=== PATIENT | female | born 1990 | race Caucasian/White ===

== ENCOUNTER 2016-09-23 22:07 | Inpatient (IN) | payer OTHER ==
[~2016-09-23] VITALS: Ht 175.3 cm; Wt 90.7 kg
--- NOTE | ~2016-09-23 | PN ---
Unit #: [id number] #: [id number] Patient: KADI COX [id number] [facility] [address] [place] [address] [id number] I MR#: [id number] NAME: KADI COX ROOM: 71 Age: 26 Sex: F Admission Date: 09/24/2016 : 1990 Attending Physician: Shin Lagos M.D. Admitting Physician: Shin Lagos M.D. Primary Care Physician: Primary Care Physician Monae SCHAEFER PROGRESS NOTES DATE 09/25/2016 DISCUSSION Ms. Quiñones is a 26-year-old female, seen on 09/25/2016. The patient interviewed, chart reviewed, and obtained information from the nursing staff. The patient was compliant and cooperative, reports making progress. Vital signs, stable, 98.4, 73, 108/71. The patient still isolative, guarded, flat affect. REVIEW OF SYSTEMS Complete review of systems unremarkable. MENTAL STATUS EXAMINATION General appearance: Patient dressed casually. Attention span and concentration, fair. Oriented in time, place, and person. Mood and affect, sad and dysphoric. Speech, monotone. Thought process, concrete. The patient denied any thoughts of harming self or others or any psychotic symptoms. Recent and remote memory, poor but still isolative. Insight and judgment, fair to slightly impaired. DIAGNOSES 1. Mood disorder, NOS. 2. Opiate use disorder, moderate. 3. Cocaine use disorder, moderate. ASSESSMENT/PLAN Advised to continue with the current medication and therapeutic protocol, and if needed consider further adjustment of medication. Dictated by... Landy Tijerina/lulu TD: 09/27/2016 06:20 JOB #: [id number] Unit #: [id number] #: [id number] Patient: KADI COX ASHTYNJOSE PROGRESS NOTES Page 1 of 1 X Shin Lagos MD PROGRESS NOTE
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
--- NOTE | ~2016-09-23 | DS ---
Unit #: [id number] #: [id number] Patient: KADI COX [id number] [facility] [address] [place] [address] [id number] I MR#: [id number] NAME: KADI COX ROOM: P171 Age: 26 Sex: F Admission Date: 09/24/2016 : 1990 Discharge Date: 09/26/2016 Attending Physician: Shin Lagos M.D. Primary Care Physician: Primary Care Physician No DISCHARGE SUMMARY REASON FOR ADMISSION Depression. DIAGNOSTIC STUDIES LABORATORY RESULTS: Unremarkable. HOSPITAL COURSE The patient was admitted to inpatient unit on 09/24/2016 and discharged on 09/26/2016. The patient was treated on the inpatient unit with group therapy, individual therapy, medication management. The patient was responsive to treatment. Subsequently, the patient was discharged with a plan to follow up in outpatient program. DISCHARGE MEDICATIONS Celexa 20 mg daily for mood symptoms, Vistaril 25 mg t.i.d. for anxiety, and Desyrel 100 mg at bedtime for sleep. DISCHARGE DIAGNOSES Psychiatric: Major depressive disorder, recurrent, severe, F33.2; opioid use disorder, moderate, F11.20; cocaine use disorder, moderate, F14.20. Secondary diagnosis: Deferred. Medical diagnosis: Hepatitis C. Stressors: Psychosocial stressor. DISCHARGE INSTRUCTIONS The patient to follow up in outpatient clinic as per clinical social work therapist. CONDITION ON DISCHARGE The patient was pleasant and cooperative. Denied any psychotic symptom or any suicidal ideation. PROGNOSIS Guarded. DIET AND ACTIVITY As tolerated. Dictated by... Shin Lagos M.D. Unit #: [id number] #: [id number] Patient: KADI COX SZC/modl TD: 09/26/2016 17:46 JOB #: [id number] DISCHARGE SUMMARY Page 1 of 1 X Shin Lagos MD X DISCHARGE SUMMARY
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
[~2016-09-23 22:07] MED LIST: CLINDAMYCIN HC300 MG PO; FLAGYL PO; FLEXERIL10 MG PO; IBUPROFEN800 MG; IBUPROFEN800 MG PO; NAPROSYN500 MG PO; NO MEDICATIONS; PHENERGAN PR; VICODIN 5/1 TAB 5/50 PO; YASMIN 28 TABLE1 TAB PO; ZANAFLEX4 M1; ZOLOFT PO
[2016-09-24 11:34] LABS: URINE APPEARANCE CLOUDY; URINE BILIRUBIN NEG (NEG); URINE BLOOD NEG (NEG); URINE COLOR YELLOW; URINE GLUCOSE NEG (NEG); URINE KETONE NEG (NEG); URINE LEUKOCYTE ESTERASE NEG (NEG); URINE NITRATE NEG (NEG); URINE PROTEIN NEG (NEG); URINE SPECIFIC GRAVITY 1.021 (1.003-1.035)
[2016-09-24 12:03] LABS: AMPHETAMINE NEG (NEG); BARBITURATES NEG (NEG); BENZODIAZEPINES NEG (NEG); COCAINE NEG (NEG); MARIJUANA NEG (NEG); OPIATES NEG (NEG); TRICYCLIC ANTIDEPRESSANTS NEG (NEG); U METHADONE NEG (NEG)
[2016-09-26 12:31] LABS: BASOPHIL# 0.1 X10e3 (0-0.3); BASOPHIL% 0.7 % (0-2.5); EOSINOPHIL# 0.1 X10e3 (0-0.7); HEMATOCRIT 42.9 % (35.0-45.0); HEMOGLOBIN 14.7 gm/dL (12.0-16.0); LYMPHOCYTE# 1.9 X10e3 (1.0-3.5); LYMPHOCYTE% 18.9 % (17.0-45.0); MEAN CORPUSCULAR HEMOGLOBIN 30.1 PG (28-34); MEAN CORPUSCULAR HGB CONC 34.2 g/dL (30-36); MEAN PLATELET VOLUME 8.3 FL (6.5-11.5); MONOCYTE% 9.6 % (3.0-12.0); NEUTROPHIL# 7.1 X10e3 (1.5-7.1); NEUTROPHIL% 69.8 % (40-75); PLATELET COUNT 286 X10e3 (140-420); RED BLOOD COUNT 4.87 X10e (3.90-5.30); RED CELL DISTRIBUTION WIDTH 13.6 % (11.0-15.5); WHITE BLOOD COUNT 10.1 X10e3 (4.0-10.5)
[2016-09-26 12:34] LABS: DIFF IND NO
[2016-09-26 13:11] LABS: ALBUMIN SERUM 3.9 g/dL (3.5-5.0); BILIRUBIN,TOTAL 0.2 mg/dL (0.2-2.0); CALCIUM SERUM 9.5 mg/dL (8.4-10.2); CREATININE SERUM 0.8 mg/dL (0.6-1.4); GLOM FILT RATE Estimated 102.6 mL/min (>60); POTASSIUM 4.2 mmol/L (3.5-5.1); PROTEIN TOTAL SERUM 6.9 g/dL (6.0-8.3)
== END 2016-09-26 13:03 | DRG 885 ==
LOC: P1E 09-24 00:50
PROVIDERS: Psychiatry & Neurology Psychiatry
PROC: HZ2ZZZZ Detoxification Services for Substance Abuse Treatment (ICD-10-PCS; principal; 2016-09-24)
DX: F33.2 Major depressive disorder, recurrent severe without psychotic features (principal); F11.20 Opioid dependence, uncomplicated; F14.20 Cocaine dependence, uncomplicated; B19.20 Unspecified viral hepatitis C without hepatic coma; Z81.8 Family history of other mental and behavioral disorders; Z81.1 Family history of alcohol abuse and dependence; Z88.1 Allergy status to other antibiotic agents; F17.200 Nicotine dependence, unspecified, uncomplicated; T14.8 Other injury of unspecified body region; Y04.2XXD Assault by strike against or bumped into by another person, subsequent encounter; Z91.410 Personal history of adult physical and sexual abuse; F39 Unspecified mood [affective] disorder
CPT/HCPCS: 80053; 80307; 81003; 84703; 85025